=== PATIENT | male | born 1985 | race Caucasian/White ===

== ENCOUNTER 2023-07-02 03:30 | Emergency (ER) | payer BC ==
[2023-07-02 03:58] VITALS: RESP 18
[2023-07-02] MEDS ORDERED: HYDROmorphone 1 MG/ML 1 ML SYRINGE IVP STA ×2 (04:17→04:47)
[2023-07-02] MEDS ORDERED: SODIUM CHLORIDE 0.9% 1,000 ML IV STA (04:17)
[2023-07-02] MEDS ORDERED: KETOROLAC 15 MG/ML 1 ML VIAL IVP STA ×2 (04:17→09:29)
[2023-07-02 04:37] LABS: Basophils # (A) 0.1 k/uL (0-0.2); Basophils % (A) 1 %; Eosinophils # (A) 0.4 k/uL (0-0.7); Eosinophils % (A) 5 %; HGB 16.2 gm/dL (13.0-17.5); Lymphocytes # (A) 2.8 k/uL (1.0-4.8); Lymphocytes % (A) 31 %; MCH 32.9 pg (25.0-35.0); MCHC 35.1 g/dL (31.0-37.0); MCV 93.8 fL (80.0-100.0); Mean Platelet Volume 7.5; Monocytes # (A) 0.5 k/uL (0-1.0); Monocytes % (A) 6 %; Neutrophils # (A) 4.9 k/uL (1.3-7.7); Neutrophils % (A) 55 %; Platelet Count 312 k/uL (150-450); RBC 4.91 m/uL (4.30-5.90); RDW 12.3 % (11.5-15.5); WBC 8.9 k/uL (3.8-10.6)
[2023-07-02 04:48] LABS: ALT 49 U/L (4-49); AST 32 U/L (17-59); African American GFR (CKD) >90 (>60 ml/min/1.73 sqM); Albumin 4.7 g/dL (3.5-5.0); Alkaline Phosphatase 57 U/L (38-126); Amylase 77 U/L (30-110); Anion Gap 15 mmol/L; Blood Urea Nitrogen 21 mg/dL (9-20); Calcium 10.2 mg/dL (8.4-10.2); Carbon Dioxide 22 mmol/L (22-30); Chloride 104 mmol/L (98-107); Glucose 134 mg/dL (74-99); Lipase 141 U/L (23-300); Non-African American GFR(CKD) >90 (>60 ml/min/1.73 sqM); Potassium 3.6 mmol/L (3.5-5.1); Sodium 141 mmol/L (137-145); Total Bilirubin 0.4 mg/dL (0.2-1.3); Total Protein 7.6 g/dL (6.3-8.2)
[2023-07-02 05:14] LABS: Appearance,Urine Clear (Clear); Bilirubin,Urine Negative (Negative); Blood,Urine Small (Negative); Calcium Oxalate Crystals,Urine Moderate /hpf; Color,Urine Yellow; Glucose,Urine (UA) Negative (Negative); Hyaline Casts,Urine 10 /lpf (0-2); Ketones,Urine Negative (Negative); Leukocyte Esterase,Urine Negative (Negative); Mucus,Urine Rare /hpf; Nitrite,Urine Negative (Negative); PH, Urine 5.5 (5.0-8.0); Protein,Urine 1+ (Negative); RBC,Urine 3 /hpf (0-5); Specific Gravity,Urine 1.028 (1.001-1.035); Urobilinogen,Urine <2.0 mg/dL (<2.0); WBC,Urine 8 /hpf (0-5)
--- NOTE | 2023-07-02 05:37 | ED ---
Abdominal Pain HPI - General Source: patient, RN notes reviewed, old records reviewed Mode of arrival: ambulatory Limitations: no limitations - History of Present Illness MD Complaint: abdominal pain, flank pain -: hour(s) Severity: severe Severity scale (1-10): 10 Quality: stabbing Consistency: constant Improves With: nothing Worsens With: nothing Associated Symptoms: nausea Treatments Prior to Arrival: other (0) <Tavo Gill - Last Filed: 07/02/23 06:37> <Prabha Pradhan - Last Filed: 07/02/23 16:43> - General Chief Complaint: Back Pain/Injury Stated Complaint: Back pain Time Seen by Provider: 07/02/23 03:53 - History of Present Illness Initial Comments: This is a 38-year-old male to the emergency department for evaluation today. Patient presents today for evaluation regards to severe abdominal pain. Patient states he believes he has history of kidney stones. Has been treated for urinary tract infection by primary care with pain tonight with severe he couldn't get comfortable can x-ray clearance stay still had the pain progressed causing her to presents the emergency department The ER. No fevers no nausea vomiting no diarrheal illnesses. Patient does have outpatient scheduled for urology although he is unsure why he's been having nonspecific abdominal pain for some time now. (Tavo Gill) - Related Data Previous Rx's Medication Instructions Recorded HYDROcodone/APAP 7.5-325MG [[place] 1 tab PO Q6HR PRN 3 Days #12 tab 07/02/23 7.5-325] Ketorolac [Toradol] 10 mg PO Q6HR PRN #15 tab 07/02/23 Tamsulosin [Flomax] 0.4 mg PO DAILY #10 cap 07/02/23 Allergies Allergy/AdvReac Type Severity Reaction Status Date / Time No Known Allergies Allergy Verified 07/02/23 03:45 Review of Systems ROS Other: All systems not noted in ROS Statement are negative. <Tavo Gill - Last Filed: 07/02/23 06:37> ROS Other: All systems not noted in ROS Statement are negative. <Prabha Pradhan - Last Filed: 07/02/23 16:43> ROS Statement: Those systems with pertinent positive or pertinent negative responses have been documented in the HPI. Past Medical History Past Medical History: Hypertension Additional Past Medical History / Comment(s): Kindey stones History of Any Multi-Drug Resistant Organisms: None Reported Past Surgical History: No Surgical Hx Reported Past Psychological History: No Psychological Hx Reported Smoking Status: Never smoker Past Alcohol Use History: Occasional Past Drug Use History: None Reported <Tavo Gill - Last Filed: 07/02/23 06:37> General Exam Limitations: no limitations General appearance: alert, in no apparent distress, anxious Head exam: Present: atraumatic, normocephalic, normal inspection Eye exam: Present: normal appearance, PERRL, EOMI. Absent: scleral icterus, conjunctival injection, periorbital swelling ENT exam: Present: normal exam, mucous membranes moist Neck exam: Present: normal inspection. Absent: tenderness, meningismus, lymphadenopathy Respiratory exam: Present: normal lung sounds bilaterally. Absent: respiratory distress, wheezes, rales, rhonchi, stridor Cardiovascular Exam: Present: regular rate, normal rhythm, normal heart sounds. Absent: systolic murmur, diastolic murmur, rubs, gallop, clicks GI/Abdominal exam: Present: soft, normal bowel sounds. Absent: distended, tenderness, guarding, rebound, rigid Extremities exam: Present: normal inspection, full ROM, normal capillary refill. Absent: tenderness, pedal edema, joint swelling, calf tenderness Back exam: Present: normal inspection Neurological exam: Present: alert, oriented X3, CN II-XII intact Psychiatric exam: Present: normal affect, normal mood Skin exam: Present: warm, dry, intact, normal color. Absent: rash <Tavo Gill - Last Filed: 07/02/23 06:37> Course <Tavo Gill - Last Filed: 07/02/23 06:37> Vital Signs 07/02/23 07/02/23 07/02/23 03:43 04:44 06:00 Temperature 98.5 F Pulse Rate 70 70 Respiratory 18 18 Rate Blood Pressure 214/125 177/79 158/98 O2 Sat by Pulse 96 99 Oximetry 07/02/23 09:47 Temperature 97.7 F Pulse Rate 78 Respiratory 18 Rate Blood Pressure 160/94 O2 Sat by Pulse 98 Oximetry - Reevaluation(s) Reevaluation #1: 07/02/23 06:39 Medical records reviewed (Tavo Gill) Reevaluation #2: 07/02/23 06:39 Patient's pain is improved (Tavo Gill) Reevaluation #3: 07/02/23 06:39 Patient informed results questions answered (Tavo Gill) Reevaluation #4: 07/02/23 06:39 Was pt. sent in by a medical professional or institution (MIYA Sena, PROGRAMMING MANAGER, urgent care, hospital, or fdc...) When possible be specific @ -no Did you speak to anyone other than the patient for history (EMS, parent, family, police, friend...)? What history was obtained from this source @ -no Did you review nursing and triage notes (agree or disagree)? Why? @ -agree Are old charts reviewed (outside hosp., previous admission, EMS record, old EKG, old radiological studies, urgent care reports/EKG's, fdc records)? Report findings @ -yes Differential Diagnosis (chest pain, altered mental status, abdominal pain women, abdominal pain men, vaginal bleeding, weakness, fever, dyspnea, syncope, headache, dizziness, GI bleed, back pain, seizure, CVA, palpatations, mental health, musculoskeletal)? @ -prior EKG interpreted by me (3pts min.). @ -yes X-rays interpreted by me (1pt min.). @ -yes CT interpreted by me (1pt min.). @ -no U/S interpreted by me (1pt. min.). @ -no What testing was considered but not performed or refused? (CT, X-rays, U/S, labs)? Why? @ -none What meds were considered but not given or refused? Why? @ -none Did you discuss the management of the patient with other professionals (professionals i.e. MIYA Sena, PROGRAMMING MANAGER, lab, RT, psych nurse, social media sr strategy manager, wire rope sling maker, teacher, commissioned fire officer, family service caseworker)? Give summary @ -no Was smoking cessation discussed for >3mins.? @ -no Was critical care preformed (if so, how long)? @ -no Were there social determinants of health that impacted care today? How? (Homelessness, low income, unemployed, alcoholism, drug addiction, transportation, low edu. Level, literacy, decrease access to med. care, alf, rehab)? @ -none Was there de-escalation of care discussed even if they declined (Discuss DNR or withdrawal of care, Hospice)? DNR status @ -no What co-morbidities impacted this encounter? (DM, HTN, Smoking, COPD, CAD, Cancer, CVA, ARF, Chemo, Hep., AIDS, mental health diagnosis, sleep apnea, morbid obesity)? @ -none Was patient admitted / discharged? Hospital course, mention meds given and route, prescriptions, significant lab abnormalities, going to OR and other pertinent info. @ - Undiagnosed new problem with uncertain prognosis? @ -no Drug Therapy requiring intensive monitoring for toxicity (Heparin, Nitro, Insulin, Cardizem)? @ -no Were any procedures done? @ -no Diagnosis/symptom? @ - Acute, or Chronic, or Acute on Chronic? @ -Acute Uncomplicated (without systemic symptoms) or Complicated (systemic symptoms)? @ -Complicated Side effects of treatment? @ -no Exacerbation, Progression, or Severe Exacerbation? @ -exacerbation Poses a threat to life or bodily function? How? (Chest pain, [place], [place], pneumonia, PE, COPD, DKA, ARF, appy, cholecystitis, CVA, Diverticulitis, Homicidal, Suicidal, threat to staff... and all critical care pts) @ -yes (Tavo Gill) Reevaluation #5: 07/02/23 06:39 Differential Abdominal Pain Men: Appendicitis, cholecystitis, diverticulosis, ischemic bowel, pancreatitis, hepatitis, UTI, gastroenteritis, AAA, incarcerated hernia, bowel obstruction, constipation, inflammatory bowel, hepatitis, peptic ulcer disease, splenic infarction, perforated viscus, testicular torsion, this is not meant to be an all-inclusive list (Tavo Gill) Medical Decision Making - Lab Data Result diagrams: 07/02/23 04:24 07/02/23 04:24 <Tavo Gill - Last Filed: 07/02/23 06:37> - Lab Data Result diagrams: 07/02/23 04:24 07/02/23 04:24 - Radiology Data Radiology results: report reviewed, image reviewed <Prabha Pradhan - Last Filed: 07/02/23 16:43> - Medical Decision Making This is a 38-year-old male who presents to the emergency department for back pain. Was pt. sent in by a medical professional or institution? @ -No Did you speak to anyone other than the patient for history? @ -No Did you review nursing and triage notes? @ -Yes, and I agree, it is accurate with regards to the patient's symptoms. Were old charts reviewed? @ -No Differential Diagnosis? @ -Differential Back Pain: Strain, zoster, cauda equina syndrome, epidural abscess, vertebral osteomyelitis, discitis, fracture, subluxation, disc herniation, DJD, spinal stenosis, dissection, AAA, pancreatitis, peptic ulcer disease, pyelonephritis, kidney stone, this is not meant to be an all-inclusive list. EKG interpreted by me (3pts min.)? @ -Not obtained X-rays interpreted by me (1pt min.)? @ -Not obtained CT interpreted by me (1pt min.)? @ -[none] U/S interpreted by me (1pt. min.)? @ -Not obtained What testing was considered but not performed? (CT, X-rays, U/S, labs)? Why? @ -None What meds were considered but not given? Why? @ -None Did you discuss the management of the patient with other professionals? @ -No Did you reconcile home meds? @ -No Was smoking cessation discussed for >3mins.? @ -No Was critical care preformed (if so, how long)? @ -No Were there social determinants of health that impacted care today? How? (Homelessness, low income, unemployed, alcoholism, drug addiction, transportation, low edu. Level, literacy, decrease access to med. care, alf, rehab)? @ -No Was there de-escalation of care discussed even if they declined? (Discuss DNR or withdrawal of care, Hospice)? @ -No What co-morbidities impacted this encounter? (DM, HTN, Smoking, COPD, CAD, Cancer, CVA, Hep., AIDS, mental health diagnosis, sleep apnea, morbid obesity)? @ -Kidney stones Was patient admitted / discharged? @ -Briefly, this is a 38-year-old male who presents to the emergency department for left flank pain. Symptoms have been intermittent over the last couple of days. However, he had been experiencing intermittent lower abdominal and suprapubic pain with urinary complaints all summer. He saw his primary care provider and had an ultrasound of the abdomen done revealing no acute process. This is the first time that he has had pain in the back. He has not had any nausea or vomiting with these episodes. Case signed out to me by ED attending, Dr. Gill, pending computed tomography scan results. Lab work revealed revealing no acute findings. Urinalysis does have a small amount of blood in it. CT scan of the abdomen and pelvis reveals a 4mm ureteral calculus in the distal left ureter with mild to moderate hy dronephrosis. Findings reviewed with the patient. Symptoms well controlled in the emergency department. Rx for Toradol, [place], and Flomax provided with dosing instructions reviewed. Advised he contact urology on Monday regarding the ED visit and the findings to see if they can be scheduled for a sooner follow up appt. Undiagnosed new problem with uncertain prognosis? @ -None Drug Therapy requiring intensive monitoring for toxicity (Heparin, Nitro, Insulin, Cardizem)? @ -None Were any procedures done? @ -None Diagnosis/symptom? @ -Left ureteral calculus Acute, or Chronic, or Acute on Chronic? @ -Acute Uncomplicated (without systemic symptoms) or Complicated (systemic symptoms)? @ -Uncomplicated Side effects of treatment? @ -None Exacerbation, Progression, or Severe Exacerbation] @ -Not applicable Poses a threat to life or bodily function? @ -The pain is having an impact on his ability to function. Return precautions reviewed in depth, the patient is instructed to return to the emergency department with any new, worsening, or concerning symptoms. Patient verbalized understanding. This case was discussed in detail with the attending ED physician, Dr. Munoz. Presentation, findings, and treatment plan discussed in detail as well. (Prabha Pradhan) - Lab Data Lab Results 07/02/23 07/02/23 07/02/23 Range/Units 04:24 04:24 04:24 WBC 8.9 (3.8-10.6) k/uL RBC 4.91 (4.30-5.90) m/uL Hgb 16.2 (13.0-17.5) gm/dL Hct 46.0 (39.0-53.0) % MCV 93.8 (80.0-100.0) fL MCH 32.9 (25.0-35.0) pg MCHC 35.1 (31.0-37.0) g/dL RDW 12.3 (11.5-15.5) % Plt Count 312 (150-450) k/uL MPV 7.5 Neutrophils % 55 % Lymphocytes % 31 % Monocytes % 6 % Eosinophils % 5 % Basophils % 1 % Neutrophils # 4.9 (1.3-7.7) k/uL Lymphocytes # 2.8 (1.0-4.8) k/uL Monocytes # 0.5 (0-1.0) k/uL Eosinophils # 0.4 (0-0.7) k/uL Basophils # 0.1 (0-0.2) k/uL Sodium 141 (137-145) mmol/L Potassium 3.6 (3.5-5.1) mmol/L Chloride 104 (98-107) mmol/L Carbon Dioxide 22 (22-30) mmol/L Anion Gap 15 mmol/L BUN 21 H (9-20) mg/dL Creatinine 0.89 (0.66-1.25) mg/dL Est GFR (CKD-EPI)AfAm >90 (>60 ml/min/1.73 sqM) Est GFR (CKD-EPI)NonAf >90 (>60 ml/min/1.73 sqM) Glucose 134 H (74-99) mg/dL Calcium 10.2 (8.4-10.2) mg/dL Total Bilirubin 0.4 (0.2-1.3) mg/dL AST 32 (17-59) U/L ALT 49 (4-49) U/L Alkaline Phosphatase 57 (38-126) U/L Total Protein 7.6 (6.3-8.2) g/dL Albumin 4.7 (3.5-5.0) g/dL Amylase 77 (30-110) U/L Lipase 141 (23-300) U/L Urine Color Yellow Urine Appearance Clear (Clear) Urine pH 5.5 (5.0-8.0) Ur Specific [place] 1.028 (1.001-1.035) Urine Protein 1+ H (Negative) Urine Glucose (UA) Negative (Negative) Urine Ketones Negative (Negative) Urine Blood Small H (Negative) Urine Nitrite Negative (Negative) Urine Bilirubin Negative (Negative) Urine Urobilinogen <2.0 (<2.0) mg/dL Ur Leukocyte Esterase Negative (Negative) Urine RBC 3 (0-5) /hpf Urine WBC 8 H (0-5) /hpf Calcium Oxalate Crystal Moderate H (None) /hpf Hyaline Casts 10 H (0-2) /lpf Urine Mucus Rare H (None) /hpf Disposition <Tavo Gill - Last Filed: 07/02/23 06:37> Is patient prescribed a controlled substance at d/c from ED?: Yes When asked, does pt state using other controlled substances?: No If prescribed controlled substance>3 days was MAPS reviewed?: Prescribed <3 Days <Prabha Pradhan - Last Filed: 07/02/23 16:43> Clinical Impression: Left ureteral calculus Disposition: HOME SELF-CARE Instructions (If sedation given, give patient instructions): Kidney Stones (ED), Renal Colic (ED), How to Strain Your Urine (ED), Flank Pain (ED) Additional Instructions: Return to the emergency department with any new, worsening, or concerning symptoms. Take the Toradol with Tylenol as needed for pain relief. Take the [place] sparingly when your pain is the most severe and be aware that it may make you drowsy and you should avoid driving or operating machinery when taking this. Take the Flomax daily for about 5 days, or until you know that you passed the kidney stone. If you are able to catch the stone in the urine strainer, try to save it and bring it with you to your urology appointment. Contact the urologist first thing Monday morning and let them know that you were seen in the emergency department and diagnosed with a stone in your ureter causing hydronephrosis and severe pain, and they should schedule you for an appointment fairly quickly. Follow up with your primary care provider in 1-2 days. Prescriptions: Tamsulosin [Flomax] 0.4 mg PO DAILY #10 cap HYDROcodone/APAP 7.5-325MG [[place] 7.5-325] 1 tab PO Q6HR PRN 3 Days #12 tab PRN Reason: Pain Ketorolac [Toradol] 10 mg PO Q6HR PRN #15 tab PRN Reason: Pain Referrals: Inocente Toledo MD [Primary Care Provider] - 1-2 days Dennys Guillen MD [STAFF PHYSICIAN] - 1-2 days
--- NOTE | 2023-07-02 09:08 | CT ---
EXAMINATION TYPE: CT abdomen pelvis wo con CT DLP: 670.7 mGycm, Automated exposure control for dose reduction was used. DATE OF EXAM: 07/02/2023 4:38 AM COMPARISON: None. CLINICAL INDICATION:Male, 38 years old with history of pain; left-sided abdominal pain x1 month TECHNIQUE: Axial CT of the abdomen and pelvis. Sagittal and coronal reformats were created on a [employer] workstation. Contrast used: mL of , (none if empty) Oral contrast used: (none if empty) FINDINGS: LOWER CHEST: Unremarkable ABDOMEN LIVER: Unremarkable GALLBLADDER AND BILE DUCTS: Unremarkable. PANCREAS: Unremarkable. SPLEEN: Unremarkable with a couple of adjacent splenules present. ADRENAL GLANDS: Unremarkable. KIDNEYS AND URETERS: A 2 mm calculus towards the upper pole of the right kidney. No right-sided hydro nephrosis. A couple of 2 to 3 mm calculi in the upper pole of the left kidney, and punctate calculus in the lower pole. There is moderate left-sided hydroureteronephrosis, with a 4 mm distal left ureter al calculus. PELVIS BLADDER: Incompletely distended but grossly unremarkable. REPRODUCTIVE: Unremarkable prostate and seminal vesicles. Radiodensity seen in the region of the prox imal to mid penile shaft, nonspecific but could represent calcification. ABDOMEN & PELVIS STOMACH AND BOWEL: Mild to moderate stool throughout the colon. The appendix appears within normal li mits. No evidence of bowel obstruction. PERITONEUM/RETROPERITONEUM: No evidence of pneumoperitoneum or free fluid. VASCULATURE: No evidence of aortic aneurysm. MUSCULOSKELETAL: No acute osseous abnormality seen. Last rib-bearing vertebra assigned T12, there lidya ear to be 5 lumbar-type vertebral bodies with partial sacralization of L5 on the left.. Generally mil d multilevel lumbar spondylosis, with at least moderate left neural foraminal stenosis noted at the L 4-L5 level. LYMPH NODES: No gross evidence for lymphadenopathy. SOFT TISSUE/ABDOMINAL WALL: No acute abnormality. Small fat-containing left inguinal hernia with poss ible small amount of fluid. Small fat-containing umbilical hernia. IMPRESSION: 1. A 4 mm calculus in the distal left ureter, causing mild/moderate left-sided hydroureteronephrosis . 2. A few additional small bilateral renal calculi.
[2023-07-02] MEDS ORDERED: HYDROmorphone 0.5 MG/0.5 ML SYRINGE IVP STA (09:29)
[2023-07-02 09:58] VITALS: BP 160/94; PULSE 78; TEMP 97.7
== END 2023-07-02 09:48 | disposition home or self-care (01) ==
LOC: EC 03:30
DX: N13.2 Hydronephrosis with renal and ureteral calculous obstruction (principal); I10 Essential (primary) hypertension
CPT/HCPCS: 36415; 80053; 82150; 83690; 85025; 81001; 74176; 99284; 96374; 96375; 96376 ×2; 96361; J1170 ×2; J1885